=== PATIENT | female | born 1960 | race Hispanic/Latino ===

== ENCOUNTER 2017-08-01 08:46 | Observation (INO) | payer BC, OTHER ==
[2017-08-01 09:18] VITALS: BMI 27.4
[2017-08-01] MEDS ORDERED: Sodium Chloride 0.9% 1,000 ML IV STA (09:32)
--- NOTE | 2017-08-01 09:32 | ED PDOC ---
Arrival/HPI - General Historian: Patient - History of Present Illness Time/Duration: Other (3 days) Symptom Onset: Gradual Symptom Course: Worsening Quality: Aching, Gas Like Severity Level: 5 <Candace Neumann - Last Filed: 08/01/17 18:25> <Meño Campos - Last Filed: 08/01/17 22:13> - General Chief Complaint: GI Problem Time Seen by Provider: 08/01/17 09:27 - History of Present Illness Narrative History of Present Illness (Text): 08/01/17 09:29 57yr old female with hx of htn and + CLYDE presents today with nausea/vomiting, abdominal pain and chest pain. pt states she hasnt been feeling well for the past month, but over the past 3 days she developed gaslike pain in the upper abdomen with a gas-like feeling radiating into the left side of the chest. pt denies fever/chills. denies urinary symptoms. denies back pain. denies dizziness or weakness. no other complaints. (Candace Neumann) Past Medical History - Provider Review Nursing Documentation Reviewed: Yes - Travel History Have you recently traveled outside [place] w/in the past 3 mons?: No - Tetanus Immunization Tetanus Immunization: Unknown - Cardiac Hx Cardiac Disorders: Yes Hx Hypertension: Yes - Pulmonary Hx Respiratory Disorders: Yes Hx Asthma: Yes - Neurological Hx Neurological Disorder: No - HEENT Hx HEENT Disorder: No - Renal Hx Renal Disorder: No - Endocrine/Metabolic Hx Endocrine Disorders: No - Hematological/Oncological Hx Blood Disorders: No - Integumentary Hx Dermatological Disorder: No - Musculoskeletal/Rheumatological Hx Musculoskeletal Disorders: No - Gastrointestinal Hx Gastrointestinal Disorders: No - Genitourinary/Gynecological Hx Genitourinary Disorders: No - Psychiatric Hx Psychophysiologic Disorder: No Hx Substance Use: No - Surgical History Hx Dilation and Curettage: Yes Hx Tonsillectomy: Yes Other/Comment: nasal bone <Candace Neumann - Last Filed: 08/01/17 18:25> Family/Social History - Physician Review Nursing Documentation Reviewed: Yes Family/Social History: Unknown Family HX Smoking Status: Former Smoker Hx Alcohol Use: Yes Frequency of alcohol use: Socially Hx Substance Use: No <Candace Neumann - Last Filed: 08/01/17 18:25> Allergies/Home Meds <Candace Neumann - Last Filed: 08/01/17 18:25> <Meño Campos - Last Filed: 08/01/17 22:13> Allergies/Adverse Reactions: Allergies dexamethasone [From TobraDex] Allergy (Verified 08/01/17 16:17) SWELLING levofloxacin [From Levaquin] Allergy (Verified 08/01/17 16:17) RASH Penicillins Allergy (Verified 08/01/17 16:17) RASH tobramycin [From TobraDex] Allergy (Verified 08/01/17 16:17) SWELLING Home Medications: Home Meds Medication Instructions Recorded Confirmed Amlodipine/Valsartan [Exforge 5 1 tab PO DAILY 08/01/17 08/01/17 mg-320 mg] Citalopram Hydrobromide [Celexa] 20 mg PO DAILY 08/01/17 08/01/17 Ibandronate Sodium [Boniva] 150 mg PO DAILY 08/01/17 08/01/17 Levalbuterol Tartrate [Xopenex Hfa] 45 gm IH Q6 PRN 08/01/17 08/01/17 Mometasone/Formoterol [Dulera] 2 curry IH BID 08/01/17 08/01/17 Rosuvastatin Calcium [Crestor] 5 mg PO DAILY 08/01/17 08/01/17 Valacyclovir HCl [Valtrex] 2 tab PO BID 08/01/17 08/01/17 Review of Systems - Review of Systems Constitutional: absent: Fatigue, Fevers ENT: Sinus Congestion Respiratory: absent: SOB, Cough Cardiovascular: absent: Chest Pain, Palpitations Gastrointestinal: Abdominal Pain, Diarrhea, Nausea, Vomiting Genitourinary Female: absent: Dysuria, Frequency, Hematuria, Urine Output Changes, Vaginal Bleeding Musculoskeletal: absent: Arthralgias, Back Pain, Neck Pain Skin: absent: Rash, Pruritis Neurological: absent: Headache, Dizziness Psychiatric: absent: Anxiety, Depression, Suicidal Ideation <Candace Neumann - Last Filed: 08/01/17 18:25> Physical Exam Vital Signs Reviewed: Yes Temperature: Afebrile Blood Pressure: Normal Pulse: Regular Respiratory Rate: Normal Appearance: Positive for: Well-Appearing, Non-Toxic, Comfortable Pain Distress: None Mental Status: Positive for: Alert and Oriented X 3 - Systems Exam Head: Present: Atraumatic Mouth: Present: Moist Mucous Membranes Nose (External): Present: Atraumatic Nose (Internal): Present: Normal Inspection Neck: Present: Normal Range of Motion, Trachea Midline. No: Meningeal Signs Respiratory/Chest: Present: Clear to Auscultation, Good Air Exchange. No: Respiratory Distress, Accessory Muscle Use, Wheezes, Rhonchi, Tachypneic Cardiovascular: Present: Regular Rate and Rhythm, Normal S1, S2. No: Murmurs, Tachycardic Abdomen: Present: Tenderness (+ epigastric, + luq and llq tenderness), Normal Bowel Sounds. No: Distention, Peritoneal Signs, Rebound, Guarding Back: Present: Normal Inspection. No: CVA Tenderness, Midline Tenderness, Paraspinal Tenderness Upper Extremity: Present: Normal ROM Lower Extremity: Present: Normal ROM Neurological: Present: GCS=15, Speech Normal Skin: Present: Warm, Dry, Normal Color. No: Rashes Psychiatric: Present: Alert, Oriented x 3 <Candace Neumann - Last Filed: 08/01/17 18:25> Vital Signs Temp Pulse Resp BP Pulse Ox 08/01/17 14:37 62 18 134/76 100 08/01/17 13:22 61 18 132/79 99 08/01/17 11:15 64 18 134/82 99 08/01/17 09:18 98.6 F 72 18 142/76 100 Medical Decision Making <Candace Neumann - Last Filed: 08/01/17 18:25> <Meño Campos - Last Filed: 08/01/17 22:13> ED Course and Treatment: 08/01/17 09:34 Patient is nontoxic well appearing with stable vital signs presenting with n/v, chest pain and abdominal pain CBC wnl CMP K3.4 Lipase; wnl trop; 0.01 Urinalysis: + ketones cxr; + round calcification; no active disease; as read by radiologist CAT scan: FINDINGS: LOWER THORAX: 10 mm densely calcified granuloma in the right lower lobe LIVER: Unremarkable. No gross lesion or ductal dilatation. GALLBLADDER AND BILE DUCTS: Unremarkable. PANCREAS: Unremarkable. No gross lesion or ductal dilatation. SPLEEN: Unremarkable. ADRENALS: Unremarkable. No mass. KIDNEYS AND URETERS: Unremarkable. No hydronephrosis. No solid mass. VASCULATURE: Unremarkable. No aortic aneurysm. BOWEL: Unremarkable. No obstruction. No gross mural thickening. APPENDIX: Normal appendix. PERITONEUM: Unremarkable. No free fluid. No free air. LYMPH NODES: Unremarkable. No enlarged lymph nodes. BLADDER: Unremarkable. REPRODUCTIVE: Unremarkable. BONES: No acute fracture. OTHER FINDINGS: None. IMPRESSION: No acute intra-abdominal findings Patient reassessment: pt feeling better. asa give PO Discussed all results with patient in depth. case discussed with dr. shaw; accepts observational status admission to [facility] for cp. Impression: chest pain, abdominal pain admit observational status to [facility]. (Candace Neumann) - Lab Interpretations Lab Results: 08/01/17 10:20 08/01/17 10:20 Lab Results 08/01/17 10:20: WBC 7.1, RBC 4.96, Hgb 15.0, Hct 44.0, MCV 88.7, MCH 30.2, MCHC 34.1, RDW 13.8, Plt Count 235, MPV 11.0, Gran % 63.3, Lymph % (Auto) 25.9, [place] % (Auto) 10.3 H, Eos % (Auto) 0.4 L, Baso % (Auto) 0.1, Gran # 4.46, Lymph # 1.8 , [place] # 0.7 H, Eos # 0.0, Baso # 0.01 08/01/17 10:20: Sodium 139, Potassium 3.4 L, Chloride 102, Carbon Dioxide 26, Anion Gap 14, BUN 12, Creatinine 0.6 L, Est GFR ( Amer) > 60, Est GFR ( Non-Af Amer) > 60, Random Glucose 111 H, Calcium 9.6, Total Bilirubin 0.6, AST 22, ALT 41, Alkaline Phosphatase 58, Lactate Dehydrogenase 373, Total Creatine Kinase 47, Troponin I < 0.01, Total Protein 7.3, Albumin 4.2, Globulin 3.1, Albumin/Globulin Ratio 1.4, Lipase 97 08/01/17 09:28: Urine Color Yellow, Urine Appearance Clear, Urine pH 7.5, Ur Specific [place] 1.010, Urine Protein Trace H, Urine Glucose (UA) Negative, Urine Ketones 40 H, Urine Blood Negative, Urine Nitrate Negative, Urine Bilirubin Negative, Urine Urobilinogen 0.2, Ur Leukocyte Esterase Negative, Urine RBC 0 - 2, Urine WBC 2 - 5, Ur Epithelial Cells 1 - 3 - RAD Interpretation Radiology Orders: 08/01/17 09:28 ABD & PELVIS IV CONTRAST ONLY [CT] Stat CHEST PORTABLE [RAD] Stat - Medication Orders Current Medication Orders: Amlodipine Besylate (Norvasc) 5 mg PO DAILY [facility] Aspirin (Aspirin Chewable) 81 mg PO DAILY [facility] Atorvastatin Calcium (Lipitor) 20 mg PO HS [facility] Last Admin: 08/01/17 21:08 Dose: 20 mg Citalopram Hydrobromide (Celexa) 20 mg PO DAILY [facility] Heparin Sodium (Porcine) (Heparin) 5,000 units SC Q12 YANA PRN Reason: Protocol Last Admin: 08/01/17 21:15 Dose: Not Given Non-Admin Reason: Patient Refused Non-Formulary Medication (Mometasone/Formoterol [Dulera 100 Mcg/5 Mcg Inhaler]) 2 curry IH BID [facility] Last Admin: 08/01/17 18:09 Dose: Non-Formulary Medication (Ibandronate Sodium [Boniva]) 150 mg PO DAILY [facility] Non-Formulary Medication (Levalbuterol Tartrate [Xopenex Hfa]) 45 gm IH Q6 PRN PRN Reason: Shortness of Breath Ondansetron HCl (Zofran Inj) 4 mg IVP Q4H PRN PRN Reason: Nausea/Vomiting Pantoprazole Sodium (Protonix Inj) 40 mg IVP Q12 [facility] Last Admin: 08/01/17 21:08 Dose: 40 mg IVP Administration Document 08/01/17 21:08 [facility] (Rec: 08/01/17 21:08 [facility] [id number]) Charges for Administration # of IVP Administrations 1 Valsartan (Diovan) 320 mg PO DAILY [facility] Discontinued Medications Aspirin (Aspirin) 325 mg PO STAT STA Stop: 08/01/17 12:17 Last Admin: 08/01/17 13:07 Dose: 325 mg Sodium Chloride (Sodium Chloride 0.9%) 1,000 mls @ 999 mls/hr IV .Q1H1M STA Stop: 08/01/17 10:32 Last Admin: 08/01/17 09:50 Dose: 999 mls/hr eMAR Start Stop Document 08/01/17 09:50 [facility] (Rec: 08/01/17 09:[address] [id number] Intravenous Solution Start Date 08/01/17 Start Time 09:50 End Date 08/01/17 End time 10:51 Total Infusion Time 61 Non-Formulary Medication (Amlodipine/Valsartan [Exforge 5-320 Mg Tablet]) 1 tab PO DAILY YANA Ondansetron HCl (Zofran Inj) 4 mg IVP STAT STA Stop: 08/01/17 09:33 Last Admin: 08/01/17 09:50 Dose: 4 mg IVP Administration Document 08/01/17 09:50 [facility] (Rec: 08/01/17 09:50 [email or web address] Charges for Administration # of IVP Administrations 1 Pneumococcal Polyvalent Vaccine (Pneumovax 23 Vaccine) 0.5 ml IM .ONCE ONE Stop: 08/01/17 19:17 Valsartan (Diovan) 320 mg PO .EXTRA DOSE ONE Stop: 08/01/17 14:16 Valsartan (Diovan) 320 mg PO .EXTRA DOSE ONE Stop: 08/01/17 14:16 - PA / [employer]NAL / Resident Statement / has reviewed & agrees with the documentation as recorded. <Meño Campos - Last Filed: 08/01/17 22:13> Disposition/Present on Arrival - Present on Arrival Any Indicators Present on Arrival: No History of DVT/PE: No History of Uncontrolled Diabetes: No Urinary Catheter: No History of Decub. Ulcer: No History Surgical Site Infection Following: None - Disposition Have Diagnosis and Disposition been Completed?: Yes Disposition Time: 12:35 Patient Plan: Observation <Candace Neumann - Last Filed: 08/01/17 18:25> <Meño Campos - Last Filed: 08/01/17 22:13> - Disposition Diagnosis: Chest pain, Abdominal pain, Nausea & vomiting Disposition: HOSPITALIZED Patient Problems: Current Active Problems Problem Status Onset Abdominal pain Acute Chest pain Acute Nausea & vomiting Acute Condition: FAIR
--- NOTE | 2017-08-01 10:12 | RAD ---
HISTORY: chest pain COMPARISON: No prior. FINDINGS: LUNGS: No infiltrate. Coarse rounded calcification projecting over lower right PLEURA: No significant pleural effusion identified, no pneumothorax apparent. CARDIOVASCULAR: Normal. OSSEOUS STRUCTURES: No significant abnormalities. VISUALIZED UPPER ABDOMEN: Lung. OTHER FINDINGS: None. IMPRESSION: No active disease.
[2017-08-01 10:35] LABS: BASO # 0.01 K/mm3 (0.0-2.0); BASO % 0.1 % (0.0-3.0); EOS % 0.4 % (1.5-5.0); GRAN # 4.46 (1.4-6.5); GRAN % 63.3 % (50.0-68.0); LYMPH # 1.8 (1.2-3.4); LYMPH % 25.9 % (22.0-35.0); MEAN CELL VOLUME 88.7 fl (80.0-105.0); MEAN CORPUSCULAR HEMOGLOBIN 30.2 pg (25.0-35.0); MEAN CORPUSCULAR HGB CONC 34.1 g/dl (31.0-37.0); MONO # 0.7 (0.1-0.6); MONO % 10.3 % (1.0-6.0); RBC 4.96 10^6/uL (3.5-6.1); RED CELL DISTRIBUTION WIDTH 13.8 % (11.5-14.5); WHITE BLOOD COUNT 7.1 10^3/ul (4.5-11.0)
[2017-08-01 10:39] LABS: ALB/GLOB RATIO 1.4 (1.1-1.8); ALBUMIN 4.2 g/dL (3.0-4.8); ALT/SGPT 41 U/L (7-56); AST/SGOT 22 U/L (14-36); BLOOD UREA NITROGEN 12 mg/dL (7-21); CALCIUM 9.6 mg/dL (8.4-10.5); GFR AFRICAN-AMERICAN > 60; GFR NON-AFRICAN AMERICAN > 60; LIPASE 97 U/L (23-300)
--- NOTE | 2017-08-01 10:41 | CARD ---
APPROVED REPORT EKG Measurement Heart [id number] MI [id number] <Conclusion> Normal sinus rhythm Normal ECG
[2017-08-01] MEDS ORDERED: Iohexol 350 MG/100 ML VIAL ONE (10:46)
[2017-08-01 10:52] LABS: TROPONIN I < 0.01 ng/mL
--- NOTE | 2017-08-01 11:18 | CT ---
PROCEDURE: CT Abdomen and Pelvis with contrast HISTORY: abd pain COMPARISON: None. TECHNIQUE: Contrast dose: 100 cc Omni 350 Radiation dose: Total exam DLP = 389 mGy-cm. This CT exam was performed using one or more of the following dose reduction techniques: Automated exposure control, adjustment of the mA and/or kV according to patient size, and/or use of iterative reconstruction technique. FINDINGS: LOWER THORAX: 10 mm densely calcified granuloma in the right lower lobe LIVER: Unremarkable. No gross lesion or ductal dilatation. GALLBLADDER AND BILE DUCTS: Unremarkable. PANCREAS: Unremarkable. No gross lesion or ductal dilatation. SPLEEN: Unremarkable. ADRENALS: Unremarkable. No mass. KIDNEYS AND URETERS: Unremarkable. No hydronephrosis. No solid mass. VASCULATURE: Unremarkable. No aortic aneurysm. BOWEL: Unremarkable. No obstruction. No gross mural thickening. APPENDIX: Normal appendix. PERITONEUM: Unremarkable. No free fluid. No free air. LYMPH NODES: Unremarkable. No enlarged lymph nodes. BLADDER: Unremarkable. REPRODUCTIVE: Unremarkable. BONES: No acute fracture. OTHER FINDINGS: None. IMPRESSION: No acute intra-abdominal findings
[2017-08-01 11:29] LABS: PH,URINE 7.5 (4.7-8.0); URINE BILIRUBIN NEGATIVE (NEGATIVE); URINE BLOOD NEGATIVE (NEGATIVE); URINE GLUCOSE (UA) NEGATIVE (NEGATIVE); URINE LEUKOCYTE ESTERASE NEGATIVE Leu/uL (NEGATIVE); URINE NITRATE NEGATIVE (NEGATIVE); URINE PROTEIN TRACE mg/dL (<30 mg/dL); URINE UROBILINOGEN 0.2 E.U./dL (<1 E.U./dL)
[2017-08-01 11:33] LABS: URINE APPEARANCE CLEAR (CLEAR); URINE COLOR YELLOW (YELLOW)
[2017-08-01 11:49] LABS: URINE RBC 0 - 2 /hpf (0-2)
[2017-08-01] MEDS ORDERED: LEVALBUTEROL TARTRATE IH PRN ×2 (13:38→14:08)
[2017-08-01] MEDS ORDERED: Non Formulary Medication (Amlodipine/Valsartan [Exforge 5-320 Mg Tablet] 1 TAB) PO SCH (13:45)
[2017-08-01] MEDS ORDERED: IBANDRONATE SODIUM 150 MG PO SCH (13:45)
--- NOTE | 2017-08-01 14:09 | CP.PCM.HP ---
<KarynCecilia - Last Filed: 08/01/17 13:49> History of Present Illness - History of Present Illness History of Present Illness: Cecilia Boss, PGY1, H&P for Dr Soria: CC: abdominal pain, nausea, vomiting, cp 57 year old female with PMH HTN, HLD, + CLYDE/CREST syndrome, presents for abdominal pain, nausea and vomiting for past 3 days. On Monday, pt states that she ate some sushi and started having brown, water diarrheal episodes 2-3x/day, and NBNB vomiting as well. Pt also c/o heartburn and epigastric pain. Denies fever, chills, headache, sob, diaphoresis, palpitations, dizziness, fatigue, cough, urinary symptoms, leg swelling, hematemesis, hemtochezia, melena. Denies recent travel, antibiotic usage, sick contacts. No prior EGD or colonoscopy. Important to note, pt also admits to an nonextertional left sided cp 1 week ago , lasting few mins, burning in nature, radiating to left shoulder, denies associated sob, diaphoresis, palpitations, n/v/abdominal pain, syncope. It was relived with Gasex. Pt states that she has been having some intermittent left sided cp for past month. Her last stress test and echocardiogram (for PVCs) was [address] Okeefe, and was reportedly normal. Pt has not followed up with him since then. Of note, pt recently tested CLYDE+ at her PMD's office and was diagnosed with CREST syndrome. She has an appointment with refrigerating machine operator at the end of this month. In ED, pt hemodynamically stable, EKG shows no ST/T wave abnormalities and initial trop neg x1. CXR shows no cardiomegaly or infiltrates. CT abd/pelvis negative for any diverticulitis/colitis/enteritis, except for 10 mm densely calcified granuloma in RLL. Currently denies chest pain, epigastric pain, nausea , abdominal pain, diarrhea. Last emesis at 8 AM this morning, last diarrheal episode on Monday. Pt had a formed BM this AM. States that she is hungry and would like to start with CLD. 12 point ROS reviewed and neg, except as per HPI. PMD: Dr Viraj Ledbetter PMH: HTN, HLD, + CLYDE/CREST syndrome? PSH: tonsillectomy at age 5, closed reduction of nose after fracture in childhood All: Levaquin, PCH - gets hives; Tobradex - eye swelling; Dexamethasone FH: Brother (at age 59), Father, aunt had HI. SH: Lives with . Drinks alcohol socially. Former smoker, quit 7 years ago. OR nurse at [employer]. Present on Admission - Present on Admission Any Indicators Present on Admission: No History of DVT/PE: No History of Uncontrolled Diabetes: No Urinary Catheter: No Decubitus Ulcer Present: No Review of Systems - Review of Systems All systems: reviewed and no additional remarkable complaints except Review of Systems: as per HPI Past Patient History - Tetanus Immunizations Tetanus Immunization: Unknown - Past Social History Smoking Status: Former Smoker - CARDIAC Hx Cardiac Disorders: Yes Hx Hypertension: Yes - PULMONARY Hx Respiratory Disorders: Yes Hx Asthma: Yes - NEUROLOGICAL Hx Neurological Disorder: No - HEENT Hx HEENT Problems: No - RENAL Hx Chronic Kidney Disease: No - ENDOCRINE/METABOLIC Hx Endocrine Disorders: No - HEMATOLOGICAL/ONCOLOGICAL Hx Blood Disorders: No - INTEGUMENTARY Hx Dermatological Problems: No - MUSCULOSKELETAL/RHEUMATOLOGICAL Hx Musculoskeletal Disorders: No - GASTROINTESTINAL Hx Gastrointestinal Disorders: No - GENITOURINARY/GYNECOLOGICAL Hx Genitourinary Disorders: No - PSYCHIATRIC Hx Psychophysiologic Disorder: No Hx Substance Use: No - SURGICAL HISTORY Hx Dilation and Curettage: Yes Hx Tonsillectomy: Yes Other/Comment: nasal bone Meds Allergies/Adverse Reactions: Allergies Allergy/AdvReac Type Severity Reaction Status Date / Time dexamethasone [From TobraDex] Allergy SWELLING Verified 08/01/17 09:25 levofloxacin [From Levaquin] Allergy RASH Verified 08/01/17 09:25 Penicillins Allergy RASH Verified 08/01/17 09:25 tobramycin [From TobraDex] Allergy SWELLING Verified 08/01/17 09:25 Physical Exam - Constitutional Appears: Well, Non-toxic, No Acute Distress - Head Exam Head Exam: ATRAUMATIC, NORMOCEPHALIC - Eye Exam Eye Exam: EOMI, Normal appearance, PERRL. absent: Conjunctival injection, Nystagmus, Periorbital swelling, Scleral icterus Pupil Exam: NORMAL ACCOMODATION, PERRL. absent: Irregular, Unequal - ENT Exam ENT Exam: Mucous Membranes Moist - Neck Exam Neck exam: Positive for: Full Rom. Negative for: Lymphadenopathy, Thyromegaly - Respiratory Exam Respiratory Exam: Clear to Auscultation Bilateral, NORMAL BREATHING PATTERN. absent: Accessory Muscle Use, Chest Wall Tenderness, Rales, Stridor - Cardiovascular Exam Cardiovascular Exam: REGULAR RHYTHM, RRR, +S1, +S2. absent: Bradycardia, Tachycardia, Diastolic murmur, Systolic Murmur - GI/Abdominal Exam GI & Abdominal Exam: Normal Bowel Sounds, Soft. absent: Diminished Bowel Sounds , Distended, Guarding, Organomegaly, Rebound, Rigid, Tenderness - Extremities Exam Extremities exam: Positive for: normal inspection. Negative for: calf tenderness, pedal edema - Back Exam Back exam: NORMAL INSPECTION. absent: CVA tenderness (L), CVA tenderness (R), muscle spasm, rash noted, tenderness - Neurological Exam Neurological exam: Alert, Oriented x3 - Psychiatric Exam Psychiatric exam: Normal Affect, Normal Mood - Skin Skin Exam: Dry, Normal Color, Warm Results - Vital Signs Recent Vital Signs: Last Vital Signs Temp 98.6 F 08/01/17 09:18 Pulse 61 08/01/17 13:22 Resp 18 08/01/17 13:22 BP 132/79 08/01/17 13:22 Pulse Ox 99 08/01/17 13:22 - Labs Result Diagrams: 08/01/17 10:20 08/01/17 10:20 Labs: Laboratory Results - last 24 hr 08/01/17 08/01/17 08/01/17 09:28 10:20 10:20 WBC 7.1 RBC 4.96 Hgb 15.0 Hct 44.0 MCV 88.7 MCH 30.2 MCHC 34.1 RDW 13.8 Plt Count 235 MPV 11.0 Gran % 63.3 Lymph % (Auto) 25.9 [place] % (Auto) 10.3 H Eos % (Auto) 0.4 L Baso % (Auto) 0.1 Gran # 4.46 Lymph # 1.8 [place] # 0.7 H Eos # 0.0 Baso # 0.01 Sodium 139 Potassium 3.4 L Chloride 102 Carbon Dioxide 26 Anion Gap 14 BUN 12 Creatinine 0.6 L Est GFR ( Amer) > 60 Est GFR (Non-Af Amer) > 60 Random Glucose 111 H Calcium 9.6 Total Bilirubin 0.6 AST 22 ALT 41 Alkaline Phosphatase 58 Lactate Dehydrogenase 373 Total Creatine Kinase 47 Troponin I < 0.01 Total Protein 7.3 Albumin 4.2 Globulin 3.1 Albumin/Globulin Ratio 1.4 Lipase 97 Urine Color Yellow Urine Appearance Clear Urine pH 7.5 Ur Specific [place] 1.010 Urine Protein Trace H Urine Glucose (UA) Negative Urine Ketones 40 H Urine Blood Negative Urine Nitrate Negative Urine Bilirubin Negative Urine Urobilinogen 0.2 Ur Leukocyte Esterase Negative Urine RBC 0 - 2 Urine WBC 2 - 5 Ur Epithelial Cells 1 - 3 Assessment & Plan - Assessment and Plan (Free Text) Assessment: 57 year old female with PMH HTN, HLD, + CLYDE/CREST syndrome? (recently diagnosed) , presents for nausea, vomiting, abdominal pain, chest pain. Pt admitted for ruling out ACS: Chest pain: - likely GERD/gastritis vs ACS - Initial EKG shows HR [address]/T wave abnormalities. Initial trop neg. - Follow up serial trops, lipid panel - ASA 325 in ED. Started on daily ASA 81 mg. C/w home Crestor. - remote tele monitoring - Cardio consulted. F/u recs - stress test? Gastroenteritis: - afebrile, hemodynamically stable - Daily cbcs, cmp - last vomiting 8 AM today, last diarrhea on Monday - Zofran prn - CLD. Advance as tolerated Lung granuloma: - incidental finding on Ct abd pelvis: 10 mm lung granuloma in RLL. - Obtain prior records and compare. May need serial monitoring. Hx of HTN/HLD: - F.u lipid panel - C/w home amlodipine/norvasc and crestor PPX: heparin Sq and protonix 40 mg IV q 12h Case seen and discussed with Dr Soria. Cecilia Boss, PGY1 - Date & Time Date: 08/01/17 Time: 14:34 <Katrina Soria - Last Filed: 08/01/17 15:15> Results - Vital Signs Recent Vital Signs: Last Vital Signs Temp 98.6 F 08/01/17 09:18 Pulse 61 08/01/17 13:22 Resp 18 08/01/17 13:22 BP 132/79 08/01/17 13:22 Pulse Ox 99 08/01/17 13:22 - Labs Result Diagrams: 08/01/17 10:20 08/01/17 10:20 Attending/Attestation - Attestation I have personally seen and examined this patient.: Yes I have fully participated in the care of the patient.: Yes I have reviewed all pertinent clinical information: Yes Notes (Text): 08/01/17 15:09 57 year old female with past medical history of hypertension and dyslipidemia who presents with complaint of abdominal pain with nausea and vomiting, possibly due to gastroenteritis. CT abd/pelvis was negative. Will started on liquid diet and advance as tolerated. She also complained of intermittent chest pain. Will obtain serial cardiac enzymes to rule out ACS. Risk factors include hypertension, dyslipidemia and strong family cardiac history. Cardiology evaluation is requested. Continue with aspirin and statin. Continue with home medications for hypertension. Katrina Soria MD Hospitalist.
[2017-08-01] MEDS ORDERED: MOMETASONE IH SCH (18:00)
[2017-08-01] MEDS ORDERED: ARO IH SCH (18:00)
[2017-08-01] MEDS ORDERED: FORMOTEROL IH SCH (18:00)
[2017-08-01] MEDS: ARO IH SCH (18:09)
[2017-08-01] MEDS: MOMETASONE IH SCH (18:09)
[2017-08-01] MEDS: FORMOTEROL IH SCH (18:09)
[2017-08-01] MEDS ORDERED: Influenza Vaccine 60 mcg/0.5 mL SYR (4YR UP) IM ONE (19:16)
[2017-08-01] MEDS ORDERED: Pneumococcal 23-Valent Vaccine IM ONE (19:16)
[2017-08-02 06:38] VITALS: BP 106/68; RESP 20; TEMP 97.9; O2SAT 97
[2017-08-02 07:15] LABS: BASO # 0.01 K/mm3 (0.0-2.0); BASO % 0.2 % (0.0-3.0); EOS # 0.1 (0.0-0.7); EOS % 1.3 % (1.5-5.0); GRAN # 3.03 (1.4-6.5); GRAN % 57.1 % (50.0-68.0); HEMOGLOBIN 13.7 g/dL (12.0-16.0); LYMPH # 1.7 (1.2-3.4); LYMPH % 32.4 % (22.0-35.0); MEAN CELL VOLUME 89.7 fl (80.0-105.0); MEAN CORPUSCULAR HGB CONC 33.4 g/dl (31.0-37.0); MEAN PLATELET VOLUME 10.8 fl (7.0-11.0); MONO # 0.5 (0.1-0.6); RBC 4.57 10^6/uL (3.5-6.1); RED CELL DISTRIBUTION WIDTH 13.7 % (11.5-14.5); WHITE BLOOD COUNT 5.3 10^3/ul (4.5-11.0)
[2017-08-02 07:35] LABS: LDL CHOLESTEROL 121 mg/dL (0-129)
[2017-08-02 07:44] LABS: ALB/GLOB RATIO 1.4 (1.1-1.8); ALBUMIN 3.7 g/dL (3.0-4.8); ALT/SGPT 30 U/L (7-56); AST/SGOT 24 U/L (14-36); BLOOD UREA NITROGEN 9 mg/dL (7-21); GFR AFRICAN-AMERICAN > 60; GFR NON-AFRICAN AMERICAN > 60; HDL CHOLESTEROL 33 mg/dL (29-60); MAGNESIUM 1.7 mg/dL (1.7-2.2)
[2017-08-02] MEDS ORDERED: IBANDRONATE SODIUM 150 MG PO SCH (10:00)
[2017-08-02] MEDS: MOMETASONE IH SCH (10:29)
[2017-08-02] MEDS: ARO IH SCH (10:29)
[2017-08-02] MEDS: FORMOTEROL IH SCH (10:29)
[2017-08-02 14:18] VITALS: PULSE 60
--- NOTE | 2017-08-02 15:37 | CP.PCM.DIS ---
<Cecilia Boss - Last Filed: 08/02/17 15:33> Provider - Provider Date of Admission: 08/01/17 13:50 Attending physician: Katrina Soria MD Primary care physician: Rubens Ledbetter MD Consults: Cardio John Time Spent in preparation of Discharge (in minutes): 35 Diagnosis - Discharge Diagnosis (1) Gastroenteritis Status: Acute (2) Gastritis Status: Acute (3) Chest pain Status: Acute Hospital Course - Lab Results Lab Results: Most Recent Lab Values WBC 5.3 10^3/ul (4.5-11.0) D 08/02/17 06:30 RBC 4.57 10^6/uL (3.5-6.1) 08/02/17 06:30 Hgb 13.7 g/dL (12.0-16.0) 08/02/17 06:30 Hct 41.0 % (36.0-48.0) 08/02/17 06:30 MCV 89.7 fl (80.0-105.0) 08/02/17 06:30 MCH 30.0 pg (25.0-35.0) 08/02/17 06:30 MCHC 33.4 g/dl (31.0-37.0) 08/02/17 06:30 RDW 13.7 % (11.5-14.5) 08/02/17 06:30 Plt Count 207 10^3/uL (120.0-450.0) 08/02/17 06:30 MPV 10.8 fl (7.0-11.0) 08/02/17 06:30 Gran % 57.1 % (50.0-68.0) 08/02/17 06:30 Lymph % (Auto) 32.4 % (22.0-35.0) 08/02/17 06:30 [place] % (Auto) 9.0 % (1.0-6.0) H 08/02/17 06:30 Eos % (Auto) 1.3 % (1.5-5.0) L 08/02/17 06:30 Baso % (Auto) 0.2 % (0.0-3.0) 08/02/17 06:30 Gran # 3.03 (1.4-6.5) 08/02/17 06:30 Lymph # 1.7 (1.2-3.4) 08/02/17 06:30 [place] # 0.5 (0.1-0.6) 08/02/17 06:30 Eos # 0.1 (0.0-0.7) 08/02/17 06:30 Baso # 0.01 K/mm3 (0.0-2.0) 08/02/17 06:30 Sodium 141 mmol/L (132-148) 08/02/17 06:30 Potassium 3.6 mmol/L (3.6-5.0) 08/02/17 06:30 Chloride 104 mmol/L (98-107) 08/02/17 06:30 Carbon Dioxide 28 mmol/L (21-33) 08/02/17 06:30 Anion Gap 12 (10-20) 08/02/17 06:30 BUN 9 mg/dL (7-21) 08/02/17 06:30 Creatinine 0.6 mg/dl (0.7-1.2) L 08/02/17 06:30 Est GFR ( Amer) > 60 08/02/17 06:30 Est GFR (Non-Af Amer) > 60 08/02/17 06:30 Random Glucose 99 mg/dL (70-110) 08/02/17 06:30 Hemoglobin A1c 5.4 % (4.2-6.5) 08/02/17 06:30 Calcium 9.0 mg/dL (8.4-10.5) 08/02/17 06:30 Phosphorus 4.1 mg/dL (2.5-4.5) 08/02/17 06:30 Magnesium 1.7 mg/dL (1.7-2.2) 08/02/17 06:30 Total Bilirubin 0.7 mg/dL (0.2-1.3) 08/02/17 06:30 AST 24 U/L (14-36) 08/02/17 06:30 ALT 30 U/L (7-56) 08/02/17 06:30 Alkaline Phosphatase 46 U/L (38-126) 08/02/17 06:30 Lactate Dehydrogenase 373 U/L (333-699) 08/01/17 10:20 Total Creatine Kinase 47 U/L (35-230) 08/01/17 10:20 Troponin I < 0.01 ng/mL 08/01/17 22:38 Total Protein 6.4 g/dL (5.8-8.3) 08/02/17 06:30 Albumin 3.7 g/dL (3.0-4.8) 08/02/17 06:30 Globulin 2.7 gm/dL 08/02/17 06:30 Albumin/Globulin Ratio 1.4 (1.1-1.8) 08/02/17 06:30 Triglycerides 125 mg/dL (35-160) 08/02/17 06:30 Cholesterol 174 mg/dL (130-200) 08/02/17 06:30 LDL Cholesterol Direct 121 mg/dL (0-129) 08/02/17 06:30 HDL Cholesterol 33 mg/dL (29-60) 08/02/17 06:30 Lipase 97 U/L (23-300) 08/01/17 10:20 Urine Color Yellow (YELLOW) 08/01/17 09:28 Urine Appearance Clear (CLEAR) 08/01/17 09:28 Urine pH 7.5 (4.7-8.0) 08/01/17 09:28 Ur Specific [place] 1.010 (1.005-1.035) 08/01/17 09:28 Urine Protein Trace mg/dL (<30 mg/dL) H 08/01/17 09:28 Urine Glucose (UA) Negative mg/dL (NEGATIVE) 08/01/17 09:28 Urine Ketones 40 mg/dL (NEGATIVE) H 08/01/17 09:28 Urine Blood Negative (NEGATIVE) 08/01/17 09:28 Urine Nitrate Negative (NEGATIVE) 08/01/17 09:28 Urine Bilirubin Negative (NEGATIVE) 08/01/17 09:28 Urine Urobilinogen 0.2 E.U./dL (<1 E.U./dL) 08/01/17 09:28 Ur Leukocyte Esterase Negative Odalys/uL (NEGATIVE) 08/01/17 09:28 Urine RBC 0 - 2 /hpf (0-2) 08/01/17 09:28 Urine WBC 2 - 5 /hpf (0-6) 08/01/17 09:28 Ur Epithelial Cells 1 - 3 /hpf (0-5) 08/01/17 09:28 - Hospital Course Hospital Course: 57 year old female with PMH HTN, HLD, + CLYDE/CREST syndrome, presents for abdominal pain, nausea and vomiting for past 3 days. On Monday, pt states that she ate some sushi and started having brown, water diarrheal episodes 2-3x/day, and NBNB vomiting as well. Pt also c/o heartburn and epigastric pain. Denies fever, chills, headache, sob, diaphoresis, palpitations, dizziness, fatigue, cough, urinary symptoms, leg swelling, hematemesis, hemtochezia, melena. Denies recent travel, antibiotic usage, sick contacts. No prior EGD or colonoscopy. Important to note, pt also admits to an nonextertional left sided cp 1 week ago , lasting few mins, burning in nature, radiating to left shoulder, denies associated sob, diaphoresis, palpitations, n/v/abdominal pain, syncope. It was relieved with Gasex. Pt states that she has been having some intermittent left sided cp for past month. Her last stress test and echocardiogram (for PVCs) was [address] Okeefe, and was reportedly normal. Pt has not followed up with him since then. Of note, pt recently tested CLYDE+ at her PMD's office and was diagnosed with CREST syndrome. She has an appointment with manufacturing director at the end of this month. Pt hemodynamically stable, EKG shows no ST/T wave abnormalities and troponins neg x3. CXR shows no cardiomegaly or infiltrates. CT abd/pelvis negative for any diverticulitis/colitis/enteritis, except for 10 mm densely calcified granuloma in RLL. Resolved chest pain, epigastric pain, nausea, abdominal pain, diarrhea. Pt tolerating Po diet well. Pt seen by Dr Lopez (Cardio) and recommends follow up with outpatient Dairy Management Specialist (Dr Okeefe) for a stress test. Pt had relief of her abdominal symptoms with Protonix and was disharged with a 20 day supply for her GERD symptoms. Additionally, pt is a former smoker, and discussed thoroughly with patient to have a follow up CT chest for her 10 mm granuloma in RLL. Pt agrees to follow up with PMD Dr Ledbetter. Discussed with Dr Soria. Cecilia Boss, PGY1 Discharge Exam - Head Exam Head Exam: ATRAUMATIC, NORMOCEPHALIC - Eye Exam Eye Exam: EOMI, PERRL. absent: Conjunctival injection, Scleral icterus Pupil Exam: PERRL - ENT Exam ENT Exam: Mucous Membranes Moist - Neck Exam Neck exam: Full Rom - Respiratory Exam Respiratory Exam: Clear to PA & Lateral. absent: Accessory Muscle Use, Chest Wall Tenderness, Respiratory Distress - Cardiovascular Exam Cardiovascular Exam: RRR, +S1, +S2. absent: Tachycardia, Diastolic murmur, Systolic Murmur - GI/Abdominal Exam GI & Abdominal Exam: Normal Bowel Sounds, Soft. absent: Diminished Bowel Sounds , Distended, Guarding, Organomegaly, Rebound, Tenderness - Back Exam Back exam: NORMAL INSPECTION. absent: CVA tenderness (L), CVA tenderness (R) - Neurological Exam Neurological exam: Alert, Oriented x3 - Psychiatric Exam Psychiatric exam: Normal Affect, Normal Mood - Skin Skin Exam: Dry, Normal Color, Warm Discharge Plan - Discharge Medications Prescriptions: Aspirin [Aspirin Chewable] 81 mg PO DAILY #30 chew Pantoprazole Sodium [Protonix] 20 mg PO BID 20 Days ect - Follow Up Plan Condition: FAIR Disposition: HOME/ ROUTINE Instructions: Chest Pain (DC), Chest Pain (GEN), Gastroenteritis (DC), Acute Nausea and Vomiting (DC), Acute Abdominal Pain (DC) Additional Instructions: - You were found to have a 10 mm granuloma in right lower lobe on CT imaging. No prior records for comparison are available. As discussed, you are given a copy of CT scan imaging and CXR to show it to your PMD. Have a repeat CT chest done within 3-6 months for monitoring of the pulmonary finding. - Follow up with PMD and Dairy Management Specialist (Dr Okeefe) in week. As per Dairy Management Specialist, you may likely need a stress test. - You are given a prescription for Protonix to help you with your GERD symptoms. - If any concerns, return back to the ER. Referrals: Ramu Okeefe MD [Staff Provider] - Rubens Ledbetter MD [Primary Care Provider] - <Katrina Soria - Last Filed: 08/02/17 16:20> Provider - Provider Date of Admission: 08/01/17 13:50 Attending physician: Katrina Soria MD Primary care physician: Rubens Ledbetter MD Hospital Course - Lab Results Lab Results: Most Recent Lab Values WBC 5.3 10^3/ul (4.5-11.0) D 08/02/17 06:30 RBC 4.57 10^6/uL (3.5-6.1) 08/02/17 06:30 Hgb 13.7 g/dL (12.0-16.0) 08/02/17 06:30 Hct 41.0 % (36.0-48.0) 08/02/17 06:30 MCV 89.7 fl (80.0-105.0) 08/02/17 06:30 MCH 30.0 pg (25.0-35.0) 08/02/17 06:30 MCHC 33.4 g/dl (31.0-37.0) 08/02/17 06:30 RDW 13.7 % (11.5-14.5) 08/02/17 06:30 Plt Count 207 10^3/uL (120.0-450.0) 08/02/17 06:30 MPV 10.8 fl (7.0-11.0) 08/02/17 06:30 Gran % 57.1 % (50.0-68.0) 08/02/17 06:30 Lymph % (Auto) 32.4 % (22.0-35.0) 08/02/17 06:30 [place] % (Auto) 9.0 % (1.0-6.0) H 08/02/17 06:30 Eos % (Auto) 1.3 % (1.5-5.0) L 08/02/17 06:30 Baso % (Auto) 0.2 % (0.0-3.0) 08/02/17 06:30 Gran # 3.03 (1.4-6.5) 08/02/17 06:30 Lymph # 1.7 (1.2-3.4) 08/02/17 06:30 [place] # 0.5 (0.1-0.6) 08/02/17 06:30 Eos # 0.1 (0.0-0.7) 08/02/17 06:30 Baso # 0.01 K/mm3 (0.0-2.0) 08/02/17 06:30 Sodium 141 mmol/L (132-148) 08/02/17 06:30 Potassium 3.6 mmol/L (3.6-5.0) 08/02/17 06:30 Chloride 104 mmol/L (98-107) 08/02/17 06:30 Carbon Dioxide 28 mmol/L (21-33) 08/02/17 06:30 Anion Gap 12 (10-20) 08/02/17 06:30 BUN 9 mg/dL (7-21) 08/02/17 06:30 Creatinine 0.6 mg/dl (0.7-1.2) L 08/02/17 06:30 Est GFR ( Amer) > 60 08/02/17 06:30 Est GFR (Non-Af Amer) > 60 08/02/17 06:30 Random Glucose 99 mg/dL (70-110) 08/02/17 06:30 Hemoglobin A1c 5.4 % (4.2-6.5) 08/02/17 06:30 Calcium 9.0 mg/dL (8.4-10.5) 08/02/17 06:30 Phosphorus 4.1 mg/dL (2.5-4.5) 08/02/17 06:30 Magnesium 1.7 mg/dL (1.7-2.2) 08/02/17 06:30 Total Bilirubin 0.7 mg/dL (0.2-1.3) 08/02/17 06:30 AST 24 U/L (14-36) 08/02/17 06:30 ALT 30 U/L (7-56) 08/02/17 06:30 Alkaline Phosphatase 46 U/L (38-126) 08/02/17 06:30 Lactate Dehydrogenase 373 U/L (333-699) 08/01/17 10:20 Total Creatine Kinase 47 U/L (35-230) 08/01/17 10:20 Troponin I < 0.01 ng/mL 08/01/17 22:38 Total Protein 6.4 g/dL (5.8-8.3) 08/02/17 06:30 Albumin 3.7 g/dL (3.0-4.8) 08/02/17 06:30 Globulin 2.7 gm/dL 08/02/17 06:30 Albumin/Globulin Ratio 1.4 (1.1-1.8) 08/02/17 06:30 Triglycerides 125 mg/dL (35-160) 08/02/17 06:30 Cholesterol 174 mg/dL (130-200) 01/17/18 06:30 LDL Cholesterol Direct 121 mg/dL (0-129) 08/02/17 06:30 HDL Cholesterol 33 mg/dL (29-60) 08/02/17 06:30 Lipase 97 U/L (23-300) 08/01/17 10:20 Urine Color Yellow (YELLOW) 08/01/17 09:28 Urine Appearance Clear (CLEAR) 08/01/17 09:28 Urine pH 7.5 (4.7-8.0) 08/01/17 09:28 Ur Specific [place] 1.010 (1.005-1.035) 08/01/17 09:28 Urine Protein Trace mg/dL (<30 mg/dL) H 08/01/17 09:28 Urine Glucose (UA) Negative mg/dL (NEGATIVE) 08/01/17 09:28 Urine Ketones 40 mg/dL (NEGATIVE) H 08/01/17 09:28 Urine Blood Negative (NEGATIVE) 08/01/17 09:28 Urine Nitrate Negative (NEGATIVE) 08/01/17 09:28 Urine Bilirubin Negative (NEGATIVE) 08/01/17 09:28 Urine Urobilinogen 0.2 E.U./dL (<1 E.U./dL) 08/01/17 09:28 Ur Leukocyte Esterase Negative [place]/uL (NEGATIVE) 08/01/17 09:28 Urine RBC 0 - 2 /hpf (0-2) 08/01/17 09:28 Urine WBC 2 - 5 /hpf (0-6) 08/01/17 09:28 Ur Epithelial Cells 1 - 3 /hpf (0-5) 08/01/17 09:28 Attending/Attestation - Attestation I have personally seen and examined this patient.: Yes I have fully participated in the care of the patient.: Yes I have reviewed all pertinent clinical information, including history, physical exam and plan: Yes Notes (Text): 08/02/17 16:17 57 year old female with past medical history of hypertension and dyslipidemia who presented with complaint of abdominal pain with nausea and vomiting, likely due to gastroenteritis. CT abd/pelvis was negative. Her diet was advanced and her symptoms resolved. She also complained of intermittent chest pain. Serial cardiac enzymes were negative and ACS was ruled out. She was seen by cardiology who recommended outpatient stress test. She was found to have granuloma on CXR. Recommended serial outpatient imaging ( CXR / CT chest) with pmd for monitoring. Patient is discharged home to follow up with pmd. Follow up with cardiology for outpatient stress test. Katrina Soria MD Hospitalist.
--- NOTE | 2017-08-03 00:36 | CON ---
DATE: 08/02/2017 LOCATION: Patient is in room 371, bed 2. REASON FOR CONSULTATION: Chest pain, hypertension, high cholesterol. HISTORY OF PRESENT ILLNESS: The patient is a 57-year-old female admitted to the hospital with nausea, vomiting and diarrhea and she also gave history that 2 weeks ago, she had an episode of burning type of left upper chest pain, which was only lasting about 15 minutes. It was relieved by Gas-X and club soda and when she burped, it went away. She denies any history of exertional chest pain in the past or any history of cardiac problems. The patient known to have hypertension 8-10 years, high cholesterol 5 years and history of asthma. PAST MEDICAL HISTORY: She had tonsillectomy in childhood and also had closed reduction of nasal fracture in childhood. She has known hypertension, high cholesterol and asthma. PERSONAL HISTORY: Used to smoke about 1 half pack a day, but stopped 7 years ago. Drink socially. ALLERGIES: THE PATIENT IS ALLERGIC TO PENICILLIN, TOBRADEX AND LEVAQUIN. FAMILY HISTORY: Father, brother and aunt have coronary artery disease. MEDICATIONS AT HOME: Patient takes Exforge 5/320 mg once a day, Crestor 5 mg daily, Boniva 150 mg daily, Protonix 20 b.i.d., aspirin 81 daily, Xopenex, and Valtrex 2 tablet b.i.d. REVIEW OF SYSTEMS: All other systems reviewed, positive mentioned in the HPI, others are negative. PHYSICAL EXAMINATION: VITAL SIGNS: Blood pressure 106/68, respirations 20, pulse 63, and temperature 97.9. HEENT: Head is normocephalic. Eyes: Pupils normal. Conjunctivae normal. Nose and throat normal. NECK: JVP low. Carotids equal. THORAX: AP diameter normal. LUNGS: Clear. CARDIOVASCULAR: S1 and S2. ABDOMEN: Soft. No tenderness. No organomegaly. EXTREMITIES: No clubbing. No cyanosis. No edema. LABORATORY DATA: WBC 5.3, hemoglobin 13.7, hematocrit 41.0, and platelet count 207. Sodium 141, potassium 3.6, BUN and creatinine are normal. AST, ALT, magnesium, phosphorus normal. Troponin x3 negative. Total protein and albumin are normal. Cholesterol 174, triglycerides 125, HDL 33, LDL 121. EKG showed regular sinus rhythm. Chest x-ray, no active disease. DIAGNOSES: Chest pain atypical, diarrhea, vomiting, hypertension, high cholesterol, history of asthma. PLAN: Suggested to the patient do a nuclear test and she would like to do it with Ramu Okeefe, whom she follows a [facility] in [place] and she will make appointment with him and follow through with him. From Cardiology point of view, the patient can go home and follow as an outpatient. She will continue medication. She is going to follow with Dr. Ramu Okeefe, [employer] [facility] for a stress test. Tae Lopez MD
== END 2017-08-02 13:38 | disposition home or self-care (01) ==
LOC: ED 08:46 → ERH 13:50 → 3RSO 15:24
PROVIDERS: ADMIT Internal Medicine; ATTEND Internal Medicine
DX: K52.9 Noninfective gastroenteritis and colitis, unspecified (principal); K29.70 Gastritis, unspecified, without bleeding; R07.89 Other chest pain; I10 Essential (primary) hypertension; E78.5 Hyperlipidemia, unspecified; E78.00 Pure hypercholesterolemia, unspecified; J45.909 Unspecified asthma, uncomplicated; J84.10 Pulmonary fibrosis, unspecified; M34.1 CR(E)ST syndrome; Z79.82 Long term (current) use of aspirin; Z79.899 Other long term (current) drug therapy; Z82.49 Family history of ischemic heart disease and other diseases of the circulatory system; Z87.891 Personal history of nicotine dependence; Z88.1 Allergy status to other antibiotic agents; Z88.0 Allergy status to penicillin
CPT/HCPCS: 36415; 71045; 74177; 80053; 80061; 81001; 82550; 83036; 83615; 83690; 83735; 84100; 84484; 85025; 93005; 96360; 96374; 99285; C9113; G0378; J2405; J7040; Q9967